=== PATIENT | female | born 1965 | race Hispanic/Latino ===

== ENCOUNTER 2022-06-16 13:29 | Outpatient (CLI) | payer BC | END 2022-06-16 13:30 | disposition home or self-care (01) | LOC: BICRAD 13:29 | PROVIDERS: ATTEND Nurse Practitioner Family | DX: M41.9 Scoliosis, unspecified (principal) | CPT/HCPCS: 72081 ==

== ENCOUNTER 2022-06-18 11:56 | Outpatient (CLI) | payer BC | END 2022-06-18 11:57 | disposition home or self-care (01) | LOC: BICMAMMO 11:56 | PROVIDERS: ATTEND Nurse Practitioner Family | DX: Z12.31 Encounter for screening mammogram for malignant neoplasm of breast (principal); Z80.3 Family history of malignant neoplasm of breast | CPT/HCPCS: 77063; 77067 ==

== ENCOUNTER 2022-08-18 09:22 | Emergency (ER) | payer BC | END 2022-08-18 11:54 | disposition home or self-care (01) | LOC: ERS 09:22 | DX: J18.9 Pneumonia, unspecified organism (principal) | CPT/HCPCS: 71045; 87081; 87430 ==

== ENCOUNTER 2023-03-21 16:00 | Outpatient (CLI) | payer BC | END 2023-03-21 16:01 | disposition home or self-care (01) | LOC: SLEEPLAB 16:00 | PROVIDERS: ATTEND Nurse Practitioner Family | DX: G47.33 Obstructive sleep apnea (adult) (pediatric) (principal); R06.83 Snoring; J45.909 Unspecified asthma, uncomplicated; D64.9 Anemia, unspecified; G47.00 Insomnia, unspecified | CPT/HCPCS: 95800 ==

== ENCOUNTER 2023-08-30 15:05 | Outpatient (CLI) | payer BC | END 2023-08-30 15:06 | disposition home or self-care (01) | LOC: BICRAD 15:05 | PROVIDERS: ATTEND Nurse Practitioner Family | DX: R22.2 Localized swelling, mass and lump, trunk (principal) | CPT/HCPCS: 71046 ==

== ENCOUNTER 2023-11-24 14:39 | Outpatient (CLI) | payer BC | END 2023-11-24 14:40 | disposition home or self-care (01) | LOC: BICMAMMO 14:39 | PROVIDERS: ATTEND Nurse Practitioner Family | DX: Z12.31 Encounter for screening mammogram for malignant neoplasm of breast (principal); Z78.0 Asymptomatic menopausal state; M85.88 Other specified disorders of bone density and structure, other site; Z80.3 Family history of malignant neoplasm of breast | CPT/HCPCS: 77067; 77080 ==